=== PATIENT | male | born 2000 | race Caucasian/White ===

== ENCOUNTER 2019-10-24 12:48 | Emergency (ER) | payer SELFPAY ==
[2019-10-24 16:31] LABS: ABSOLUTE MONOCYTES (AUTO) 0.7 10^3/uL (0.1-1.4); BASOPHILS % (AUTO) 0.3 % (0-2); EOSINOPHILS % (AUTO) 0.2 % (0-6); HEMATOCRIT 45.4 % (37.9-51.0); HEMOGLOBIN 15.9 g/dL (13.5-17.0); LYMPHOCYTES % (AUTO) 17.3 % (13-45); MEAN CORPUSCULAR VOLUME 83 fl (80-97); MONOCYTES % (AUTO) 12.4 % (3-13); PLATELET COUNT 217 10^3/uL (150-450); RED BLOOD COUNT 5.49 10^6/uL (4.35-5.55); RED CELL DISTRIBUTION WIDTH 13.2 % (11.5-14.0); SEGMENTED NEUTROPHILS % (AUTO) 69.8 % (42-78); TOTAL CELLS COUNTED % (AUTO) 100 %; WHITE BLOOD COUNT 5.7 10^3/uL (4.0-10.5)
--- NOTE | 2019-10-24 16:35 | RADIOLOGY REPORT (SQ) ---
EXAM DESCRIPTION: CHEST SINGLE VIEW IMAGES COMPLETED DATE/TIME: 10/24/2019 4:18 pm REASON FOR STUDY: cough COMPARISON: None. EXAM PARAMETERS: NUMBER OF VIEWS: One view. TECHNIQUE: Single frontal radiographic view of the chest acquired. RADIATION DOSE: NA LIMITATIONS: None. FINDINGS: LUNGS AND PLEURA: No opacities, masses or pneumothorax. No pleural effusion. MEDIASTINUM AND HILAR STRUCTURES: No masses. Contour normal. HEART AND VASCULAR STRUCTURES: Heart normal in size. Normal vasculature. BONES: No acute findings. HARDWARE: None in the chest. OTHER: No other significant finding. IMPRESSION: No focal airspace disease or other evidence of acute intrathoracic process. TECHNICAL DOCUMENTATION: JOB ID: [id number] 2010 [employer]- All Rights Reserved Reading location - IP/workstation name: [email or web address]
[2019-10-24 16:46] LABS: ALKALINE PHOSPHATASE 80 U/L (38-126); ANION GAP 9 (5-19); ASPARTATE AMINO TRANSFERASE 29 U/L (17-59); BILIRUBIN,TOTAL 0.5 mg/dL (0.2-1.3); BLOOD UREA NITROGEN 15 mg/dL (7-20); CALCIUM 9.5 mg/dL (8.4-10.2); CARBON DIOXIDE 24 mmol/L (22-30); CHLORIDE 104 mmol/L (98-107); GLUCOSE 97 mg/dL (75-110); POTASSIUM 4.2 mmol/L (3.6-5.0); TOTAL PROTEIN 7.8 g/dL (6.3-8.2)
[2019-10-24 16:56] LABS: A TYPE INFLUENZA AG NEGATIVE (NEGATIVE); B INFLUENZA AG NEGATIVE (NEGATIVE)
--- NOTE | 2019-10-24 17:01 | ER Document Report ---
ED General - General Chief Complaint: Flu Symptoms Stated Complaint: COUGH,FEVER,HEADACHE,CONGESTION Time Seen by Provider: 10/24/19 14:22 - HPI Notes: Chief complaint: Dull headache, low-grade temperature, myalgias, diarrhea, non productive cough HPI: Previously healthy 19-year-old male with multiple symptoms as noted above. Present 48 hours. Patient denies known covert exposure. Denies travel outside the area. No regular medications. No known allergies. No prior hospitalizations, or major surgery or serious illnesses. Currently unemployed. Non-smoker. Occasional social alcohol consumption. Denies drug use. - Related Data Allergies/Adverse Reactions: No Known Allergies Allergy (Unverified 10/24/19 13:37) Past Medical History - General Information source: Patient - Social History Smoking Status: Never Smoker Chew tobacco use (# tins/day): Yes Frequency of alcohol use: Social Family History: Reviewed & Not Pertinent Patient has homicidal ideation: No Review of Systems - Review of Systems Notes: Constitutional: As per HPI. HENT: Negative for sore throat. Denies change in sense of taste or smell. Eyes: Negative for visual changes. Cardiovascular: Negative for chest pain. Respiratory: As per HPI. Gastrointestinal: As per HPI. Genitourinary: Negative for dysuria. Musculoskeletal: Negative for back pain. Skin: Negative for rash. Neurological: As per HPI. 10 point ROS negative except as marked above and in HPI. Physical Exam - Vital signs Vitals: Temp 99.4 F 10/24/19 12:55 - Notes Notes: GENERAL: Well-developed well-nourished appearing in no acute distress. SKIN: Moist. Good turgor no rashes. HEAD: Normocephalic atraumatic. EYES: PERRLA. EOMI. Conjunctivae and sclerae clear. EARS: CANALS AND TMS CLEAR. NOSE: CLEAR. MOUTH: Moist mucosa. Good dentition. No stridor or edema. No drooling. NECK: Supple. No masses or thyromegaly. No adenopathy. Carotids 2+ without bruits. No JVD. BACK: Symmetrical without tenderness. CHEST: Respirations unlabored. Breath sounds clear and symmetrical. HEART: Regular rhythm. No murmur gallop or rub. ABDOMEN: Soft nontender without masses, organomegaly or rebound. Bowel sounds normally active. No bruits. GENITALIA: Deferred. EXTREMITIES: No edema. No calf tenderness. Cap refill less than 1.5 seconds. Dorsalis pedis and posterior tibial pulses 3+ and symmetrical. NEUROLOGICAL: GCS 15. Alert and oriented x3. Normal gait. Fluent speech. Cranial nerves II through XII intact. Sensorimotor and cerebellar normal. Normal tone. PSYCHIATRIC: Appropriate affect. Course - Re-evaluation Re-evalutation: 10/24/19 17:04 CBC and comprehensive metabolic profile are unremarkable. Chest x-ray shows no infiltrate. Normal oxygenation on room air. Low-grade temperature. Negative influenza screen and strep test. COVID swab results pending. I explained the patient he likely has a viral syndrome possibly COVID. I will give him a liter of IV normal saline here and I think he is stable for outpatient management and he will self quarantine at home until results of his COVID testing are known. 10/24/19 17:25 Findings, clinical impression and plan of treatment have been discussed with patient/family. Understanding of current findings and recommendations has been acknowledged by them and there is agreement regarding disposition and follow-up. - Vital Signs Vital signs: Temp Pulse Resp BP Pulse Ox 99.4 F 91 16 132/78 H 98 10/24/19 13:01 10/24/19 13:01 10/24/19 13:01 10/24/19 13:01 10/24/19 13:01 - Laboratory Result Diagrams: 10/24/19 16:16 10/24/19 16:16 - Diagnostic Test Radiology reviewed: Reports reviewed - Normal chest x-ray per radiologist. Discharge - Discharge Clinical Impression: Acute viral syndrome, Suspected COVID-19 virus infection Condition: Stable Disposition: HOME, SELF-CARE Additional Instructions: Isolate yourself at home until you are contacted regarding the result of your COVID swab results. Increase oral fluids. Tylenol or ibuprofen as needed. Return here as needed for new or worsening symptoms: Pain that is worsening or unimproved Uncontrolled vomiting High fever or shaking chills Overall worsening Referrals: [facility] [Provider Group] - Follow up as needed
[2019-10-24] MEDS ORDERED: NORMAL SALINE 1000 ML 1,000 ML IV ONE (17:03)
[2019-10-24 17:36] VITALS: BP 121/61
== END 2019-10-24 17:36 | disposition home or self-care (01) ==
LOC: ER 12:48
DX: U07.1 COVID-19 (principal); R05 Cough; R50.9 Fever, unspecified; R51 Headache; R09.81 Nasal congestion; M79.10 Myalgia, unspecified site; R19.7 Diarrhea, unspecified
CPT/HCPCS: 99283; 36415; 85025; 87635; 80053; 87804; 71045; C9803